=== PATIENT | female | born 1940 | race African-American/Black ===

== ENCOUNTER 2018-04-27 12:44 | Emergency (ER) | payer OTHER ==
[~2018-04-27] VITALS: Ht 160 cm; Wt 63.5 kg
[2018-04-27 13:14] VITALS: BP 96/47
[2018-04-27 14:11] LABS: HEMOGLOBIN 11.7 G/DL (12.0-16.0); MEAN CORPUSCULAR VOLUME 75 FL (80-99); PLATELET COUNT 416 K/UL (150-450); RED BLOOD COUNT 5.05 M/UL (4.20-5.40); WHITE BLOOD COUNT 18.4 K/UL (4.8-10.8)
[2018-04-27 14:20] LABS: INR 1.1 (0.9-1.1)
[2018-04-27 14:24] LABS: ANION GAP 13 mmol/L (5-15); BLOOD UREA NITROGEN 14 mg/dL (7-18); CALCIUM 7.9 MG/DL (8.5-10.1); CARBON DIOXIDE 25 MMOL/L (21-32); CHLORIDE 96 MMOL/L (98-107); CREATININE 7.5 MG/DL (0.55-1.30); POTASSIUM 2.9 MMOL/L (3.5-5.1); SODIUM 134 MMOL/L (136-145)
[2018-04-27] MEDS ORDERED: cefTRIAXone 1 GM in NS 55 ML IVPB ONE (14:30)
[2018-04-27 14:37] LABS: ALANINE AMINOTRANSFERASE 14 U/L (12-78); ALBUMIN 1.5 G/DL (3.4-5.0); ALBUMIN/GLOBULIN RATIO 0.3 (1.0-2.7); ALKALINE PHOSPHATASE 132 U/L (46-116); ASPARTATE AMINO TRANSFERASE 44 U/L (15-37); BILIRUBIN,TOTAL 0.4 MG/DL (0.2-1.0); CKMB 1.3 NG/ML (0.0-3.6); CREATINE KINASE 116 U/L (26-308); PHOSPHORUS 1.8 MG/DL (2.5-4.9)
--- NOTE | 2018-04-27 14:49 | Emergency Room Report ---
History of Present Illness General Chief Complaint: Generalized Weakness Source: Family Member (Makc Neal MD) Present Illness HPI Patient is a 78-year-old female brought in by EMS after increased generalized weakness. Patient was noted to have increased epigastric discomfort. Patient prior history of end-stage renal disease and was receiving peritoneal dialysis. Patient reported to have the peritoneal dialysis earlier in the day. The patient states she has prior history of anemia and had epogen injection earlier in the day as well. The patient denied any fever. She had not been vomiting. Patient reports having constant epigastric pain. (Mack Neal MD) Allergies: Coded Allergies: No Known Allergies (Unverified , 04/27/18) Patient History Past Medical History: see triage record Reviewed Nursing Documentation: PMH: Agreed; PSxH: Agreed (Mack Neal MD) Nursing Documentation-PMH Hx Cardiac Problems: Yes - CHF Hx Gastrointestinal Problems: Yes - GERD (Mack Neal MD) Review of Systems All Other Systems: negative except mentioned in HPI (Mack Neal MD) Physical Exam Vital Signs Date Time Temp Pulse Resp B/P (MAP) Pulse Ox O2 Delivery O2 Flow Rate FiO2 04/27/18 12:37 96.8 86 14 73/49 100 Room Air 96.8 Sp02 EP Interpretation: reviewed, normal General Appearance: alert, GCS 15, thin, Chronically Ill Head: atraumatic Eyes: bilateral eye conjunctivae pale ENT: normal ENT inspection, hearing grossly normal, normal voice Neck: normal inspection, full range of motion, supple, no bony tend Respiratory: normal inspection, lungs clear, normal breath sounds, no respiratory distress, no retraction, no wheezing Cardiovascular #1: regular rate, rhythm, no edema Gastrointestinal: normal inspection, normal bowel sounds, soft, no guarding, no hernia, tenderness - epigastric Genitourinary: no CVA tenderness Musculoskeletal: normal inspection, back normal, normal range of motion Neurologic: normal inspection, alert, oriented x3, responsive, speech normal Psychiatric: normal inspection, judgement/insight normal, mood/affect normal Skin: no rash, pallor (Mack Neal MD) Medical Decision Making Diagnostic Impression: Primary Impression: SBP (spontaneous bacterial peritonitis) Additional Impression: Renal failure ER Course Patient presented for generalized weakness. Differential diagnosis included was not limited to anemia, urinary tract infection, electrolyte abnormality, hypothyroidism, myocardial infarction, myasthenia gravis, dehydration, among others. Because of complexity of patient's case laboratory testing and imaging studies were ordered. EKG interpreted by me showed normal sinus rhythm without any evidence of acute ST or T wave changes. The patient was started on IV fluids. She was noted to have elevated white blood count on laboratory testing as well as elevated lactic acid level. The patient was endorsed to Dr. Centeno pending a CT imaging. Labs Test 04/27/18 13:55 White Blood Count 18.4 K/UL (4.8-10.8) Red Blood Count 5.05 M/UL (4.20-5.40) Hemoglobin 11.7 G/DL (12.0-16.0) Hematocrit 38.0 % (37.0-47.0) Mean Corpuscular Volume 75 FL (80-99) Mean Corpuscular Hemoglobin 23.1 PG (27.0-31.0) Mean Corpuscular Hemoglobin Concent 30.7 G/DL (32.0-36.0) Red Cell Distribution Width 18.0 % (11.6-14.8) Platelet Count 416 K/UL (150-450) Mean Platelet Volume 9.5 FL (6.5-10.1) Neutrophils (%) (Auto) % (45.0-75.0) Lymphocytes (%) (Auto) % (20.0-45.0) Monocytes (%) (Auto) % (1.0-10.0) Eosinophils (%) (Auto) % (0.0-3.0) Basophils (%) (Auto) % (0.0-2.0) Prothrombin Time 11.3 SEC (9.30-11.50) Prothromb Time International Ratio 1.1 (0.9-1.1) Activated Partial Thromboplast Time 28 SEC (23-33) Sodium Level 134 MMOL/L (136-145) Potassium Level 2.9 MMOL/L (3.5-5.1) Chloride Level 96 MMOL/L (98-107) Carbon Dioxide Level 25 MMOL/L (21-32) Anion Gap 13 mmol/L (5-15) Blood Urea Nitrogen 14 mg/dL (7-18) Creatinine 7.5 MG/DL (0.55-1.30) Estimat Glomerular Filtration Rate mL/min (>60) Glucose Level 165 MG/DL (74-106) Lactic Acid Level 5.40 mmol/L (0.4-2.0) Calcium Level 7.9 MG/DL (8.5-10.1) Phosphorus Level 1.8 MG/DL (2.5-4.9) Magnesium Level 1.2 MG/DL (1.8-2.4) Total Bilirubin 0.4 MG/DL (0.2-1.0) Aspartate Amino Transf (AST/SGOT) 44 U/L (15-37) Alanine Aminotransferase (ALT/SGPT) 14 U/L (12-78) Alkaline Phosphatase 132 U/L (46-116) Total Creatine Kinase 116 U/L (26-308) Creatine Kinase MB 1.3 NG/ML (0.0-3.6) Creatine Kinase MB Relative Index 1.1 Troponin I 0.038 ng/mL (0.000-0.056) Total Protein 6.1 G/DL (6.4-8.2) Albumin 1.5 G/DL (3.4-5.0) Globulin 4.6 g/dL Albumin/Globulin Ratio 0.3 (1.0-2.7) (Mack Neal MD) ER Course Please refer to the initial note for the history exam and presentation At this time patient had CT obtained I spoke to radiology There was some question regarding possible free intra-abdominal air However patient is also on peritoneal dialysis And there was some question regarding that being the source With that finding general surgery was consulted Patient's abdomen remains soft Please refer to his report for the full specifics However as far as emergent intra-abdominal pathology patient was cleared through surgery Patient does have elevated white blood cell count and elevated lactic acid therefore is severe sepsis protocols continued to progress with IV hydration and antibiotics Patient is stable for transfer Currently at time of dictation [id number] patient remains with appropriate blood pressure and heart rate And stable for close follow-up with transfer for inpatient care Labs Test 04/27/18 13:55 04/27/18 15:20 White Blood Count 18.4 K/UL (4.8-10.8) Red Blood Count 5.05 M/UL (4.20-5.40) Hemoglobin 11.7 G/DL (12.0-16.0) Hematocrit 38.0 % (37.0-47.0) Mean Corpuscular Volume 75 FL (80-99) Mean Corpuscular Hemoglobin 23.1 PG (27.0-31.0) Mean Corpuscular Hemoglobin Concent 30.7 G/DL (32.0-36.0) Red Cell Distribution Width 18.0 % (11.6-14.8) Platelet Count 416 K/UL (150-450) Mean Platelet Volume 9.5 FL (6.5-10.1) Neutrophils (%) (Auto) % (45.0-75.0) Lymphocytes (%) (Auto) % (20.0-45.0) Monocytes (%) (Auto) % (1.0-10.0) Eosinophils (%) (Auto) % (0.0-3.0) Basophils (%) (Auto) % (0.0-2.0) Differential Total Cells Counted 100 Neutrophils % (Manual) 91 % (45-75) Lymphocytes % (Manual) 5 % (20-45) Monocytes % (Manual) 4 % (1-10) Eosinophils % (Manual) 0 % (0-3) Basophils % (Manual) 0 % (0-2) Band Neutrophils 0 % (0-8) Platelet Estimate Increased Platelet Morphology Normal Hypochromasia 3+ Anisocytosis 2+ Prothrombin Time 11.3 SEC (9.30-11.50) Prothromb Time International Ratio 1.1 (0.9-1.1) Activated Partial Thromboplast Time 28 SEC (23-33) Sodium Level 134 MMOL/L (136-145) Potassium Level 2.9 MMOL/L (3.5-5.1) Chloride Level 96 MMOL/L (98-107) Carbon Dioxide Level 25 MMOL/L (21-32) Anion Gap 13 mmol/L (5-15) Blood Urea Nitrogen 14 mg/dL (7-18) Creatinine 7.5 MG/DL (0.55-1.30) Estimat Glomerular Filtration Rate mL/min (>60) Glucose Level 165 MG/DL (74-106) Lactic Acid Level 5.40 mmol/L (0.4-2.0) 4.90 mmol/L (0.66-2.22) Calcium Level 7.9 MG/DL (8.5-10.1) Phosphorus Level 1.8 MG/DL (2.5-4.9) Magnesium Level 1.2 MG/DL (1.8-2.4) Total Bilirubin 0.4 MG/DL (0.2-1.0) Aspartate Amino Transf (AST/SGOT) 44 U/L (15-37) Alanine Aminotransferase (ALT/SGPT) 14 U/L (12-78) Alkaline Phosphatase 132 U/L (46-116) Total Creatine Kinase 116 U/L (26-308) Creatine Kinase MB 1.3 NG/ML (0.0-3.6) Creatine Kinase MB Relative Index 1.1 Troponin I 0.038 ng/mL (0.000-0.056) Total Protein 6.1 G/DL (6.4-8.2) Albumin 1.5 G/DL (3.4-5.0) Globulin 4.6 g/dL Albumin/Globulin Ratio 0.3 (1.0-2.7) (Neeraj Centeno DO) EKG Diagnostic Results Rate: normal Rhythm: NSR ST Segments: no acute changes (Mack Neal MD) Rhythm Strip Diag. Results EP Interpretation: yes Rhythm: NSR, no PVC's, no ectopy (Mack Neal MD) Chest X-Ray Diagnostic Results Chest X-Ray Diagnostic Results : Chest X-Ray Ordered: Yes # of Views/Limited/Complete: 1 View Indication: Chest Pain EP Interpretation: Yes Interpretation: no consolidation, no effusion, no pneumothorax, other - Question of air under the right hemidiaphragm Impression: Other - Question of free air under right diaphragm (Neeraj Centeno DO) CT/MRI/US Diagnostic Results CT/MRI/US Diagnostic Results : Impression CT abdomen pelvisFindings: Lack of enteric contrast limits assessment of the GI tract. There is a peritoneal dialysis catheter within the peritoneal space in the left anterior pelvis.. There is free intraperitoneal fluid. There is also free intraperitoneal air. The majority is in the anterior peritoneal space anterior to the left lobe of the liver and the stomach. A few gas bubbles are seen within the falciform ligament and within the lesser sac and within the anterior omentum. There is some infiltration of the pericolonic fat surrounding the proximal descending colon and the splenic flexure, and some of the omental gas bubbles are seen in the vicinity of this is well. The appendix is normal. No evidence of diverticulosis or diverticulitis. No small bowel distention. There is a small hiatal hernia. There is mild thickening of the distal esophageal wall. A small amount of fluid is seen herniated into the umbilicus. Lack of IV contrast limits assessment of solid organs. The liver demonstrates surface nodularity. There is a 3.8 cm cyst in segment 4A. Some calcifications are seen within the liver. The gallbladder, bile ducts, pancreas, spleen are unremarkable. There is an accessory splenule. The adrenals are unremarkable. The kidneys are atrophic. There is a parapelvic cyst on the right. Calcifications in the renal sinuses bilaterally are probably arterial. No hydronephrosis. No retroperitoneal mass or adenopathy. No pelvic mass or adenopathy. The uterus is not identified, presumed surgically absent. The urinary bladder is equivocally mildly thick-walled. There is edema of the presacral fat. There is trace pleural fluid on the left. There are posterior dependent pulmonary atelectatic changes. The bones are unremarkable except for mild degenerative proliferative changes of the thoracic and lumbar spine. Impression: Peritoneal dialysis catheter in place Pneumoperitoneum. Statistically, most likely due to the presence of of the peritoneal dialysis catheter. However, the presence of gas bubbles within the fat of the lesser sac, falciform ligament, and greater omentum-not definitely within the peritoneal space-does raise concern for the possibility of perforated hollow viscus, possibly a perforated gastric ulcer given the proximity of some of gas bubbles to the stomach. There is also infiltration of the fat surrounding the proximal descending colon which could indicate colonic inflammation and some of the omental gas bubbles are in the vicinity of this. No definite diverticula to suggest diverticulitis, however. Free intraperitoneal fluid, presumably related to the peritoneal dialysis catheter, although there is also evidence of hepatic cirrhosis Surface nodularity of the liver, suspicious for hepatic cirrhosis, as mentioned above Atrophic bilateral kidneys Equivocally wall thickening of the urinary bladder, most likely artifact of under distention is nondistended, Small hiatal hernia. Mild wall thickening of the distal esophagus, could indicate esophagitis Nonspecific edema of the presacral fat Trace left pleural effusion Other findings as noted, including mild degenerative spondylosis, small right renal parapelvic cyst, herniated fluid in the umbilicus, accessory splenule (Neeraj Centeno DO) Last Vital Signs Date Time Temp Pulse Resp B/P (MAP) Pulse Ox O2 Delivery O2 Flow Rate FiO2 04/27/18 13:14 86 22 96/47 100 Room Air 04/27/18 12:37 96.8 96.8 Status: unchanged (Mack Neal MD) Status: improved (Neeraj Centeno DO) Disposition: XFER SHT-TRM HOSP Condition: Serious Referrals: NON PHYSICIAN (PCP) Mack Neal MD Apr 27, 2018 14:49 Neeraj Centeno DO Apr 27, 2018 17:49
[2018-04-27] MEDS ORDERED: ASPIRIN81 MG ORAL (14:54)
[2018-04-27] MEDS ORDERED: COZAAR50 MG ORAL (14:54)
[2018-04-27] MEDS ORDERED: LOPERAMIDE2 M1 PO (14:54)
[2018-04-27] MEDS ORDERED: RENVELA0.8 GM ORAL (14:54)
[2018-04-27] MEDS ORDERED: ISOSORBIDE MONO60 M1 PO (14:54)
[2018-04-27] MEDS ORDERED: ZOFRAN4 M3 ORAL (14:54)
[2018-04-27] MEDS ORDERED: NITROSTAT0.4 M1 SL (14:54)
[2018-04-27] MEDS ORDERED: LYRICA25 MG ORAL (14:54)
[2018-04-27] MEDS ORDERED: MIRTAZAPINE15 MG ORAL (14:54)
[2018-04-27] MEDS ORDERED: AMLODIPINE BESYL5 MG ORAL (14:54)
[2018-04-27] MEDS ORDERED: REGLAN5 MG ORAL (14:54)
[2018-04-27] MEDS ORDERED: SENNA8.6 M2 PO (14:54)
[2018-04-27] MEDS ORDERED: LOPERAMIDE2 MG PO (14:54)
[2018-04-27] MEDS ORDERED: CRESTOR20 MG ORAL (14:54)
[2018-04-27] MEDS ORDERED: NORCO 5-325 TA1 EACH ORAL (14:54)
[2018-04-27] MEDS ORDERED: NEPHROVITE1 TAB ORAL (14:54)
[2018-04-27] MEDS ORDERED: GABAPENTIN300 MG ORAL (14:54)
[2018-04-27] MEDS ORDERED: ROCATROL0.25 MCG PO (14:54)
[2018-04-27] MEDS ORDERED: PLAVIX75 MG ORAL (14:54)
[2018-04-27] MEDS ORDERED: CARVEDILOL25 MG ORAL (14:54)
[2018-04-27] MEDS ORDERED: DOCUSATE SODIU100 MG ORAL (14:54)
[2018-04-27] MEDS ORDERED: ZOCOR10 MG ORAL (14:54)
[2018-04-27] MEDS ORDERED: PROTONIX40 MG ORAL (14:54)
[2018-04-27] MEDS ORDERED: VITAMIN D2400 UNI1 PO (14:54)
--- NOTE | 2018-04-27 15:09 | Diagnostic Imaging Report ---
Indication: Cough Technique: One view of the chest Comparison: none Findings: There is free intraperitoneal air under the right hemidiaphragm. Inspiration is suboptimal. There is some atelectasis in the left infrahilar region. Lungs and pleural spaces are otherwise clear. Impression: Evidence of free intraperitoneal air. Per discussion with referring physician, patient has history of peritoneal dialysis so most likely related to such. However, the possibility of perforated hollow viscus should also be considered. Correlate with clinical findings Minimal left infrahilar atelectasis Findings discussed by phone with Dr. Centeno at the time of interpretation
[2018-04-27] MEDS ORDERED: Vancomycin 1 GM in NS 275 ML IVPB ONE (15:45)
[2018-04-27 15:46] VITALS: BP 139/39
--- NOTE | 2018-04-27 16:34 | Diagnostic Imaging Report ---
Indication: Abdominal pain and epigastric discomfort Technique: Spiral acquisitions obtained through the abdomen and pelvis. No oral contrast utilized, per emergency room physician request No IV contrast utilized, per referring physician request.. Multiplanar reconstructions were generated. Total dose length product 836.65 mGycm. CTDIvol(s) 15.7 mGy. Dose reduction achieved using automated exposure control Comparison: None Findings: Lack of enteric contrast limits assessment of the GI tract. There is a peritoneal dialysis catheter within the peritoneal space in the left anterior pelvis.. There is free intraperitoneal fluid. There is also free intraperitoneal air. The majority is in the anterior peritoneal space anterior to the left lobe of the liver and the stomach. A few gas bubbles are seen within the falciform ligament and within the lesser sac and within the anterior omentum. There is some infiltration of the pericolonic fat surrounding the proximal descending colon and the splenic flexure, and some of the omental gas bubbles are seen in the vicinity of this is well. The appendix is normal. No evidence of diverticulosis or diverticulitis. No small bowel distention. There is a small hiatal hernia. There is mild thickening of the distal esophageal wall. A small amount of fluid is seen herniated into the umbilicus. Lack of IV contrast limits assessment of solid organs. The liver demonstrates surface nodularity. There is a 3.8 cm cyst in segment 4A. Some calcifications are seen within the liver. The gallbladder, bile ducts, pancreas, spleen are unremarkable. There is an accessory splenule. The adrenals are unremarkable. The kidneys are atrophic. There is a parapelvic cyst on the right. Calcifications in the renal sinuses bilaterally are probably arterial. No hydronephrosis. No retroperitoneal mass or adenopathy. No pelvic mass or adenopathy. The uterus is not identified, presumed surgically absent. The urinary bladder is equivocally mildly thick-walled. There is edema of the presacral fat. There is trace pleural fluid on the left. There are posterior dependent pulmonary atelectatic changes. The bones are unremarkable except for mild degenerative proliferative changes of the thoracic and lumbar spine. Impression: Peritoneal dialysis catheter in place Pneumoperitoneum. Statistically, most likely due to the presence of of the peritoneal dialysis catheter. However, the presence of gas bubbles within the fat of the lesser sac, falciform ligament, and greater omentum-not definitely within the peritoneal space-does raise concern for the possibility of perforated hollow viscus, possibly a perforated gastric ulcer given the proximity of some of gas bubbles to the stomach. There is also infiltration of the fat surrounding the proximal descending colon which could indicate colonic inflammation and some of the omental gas bubbles are in the vicinity of this. No definite diverticula to suggest diverticulitis, however. Free intraperitoneal fluid, presumably related to the peritoneal dialysis catheter, although there is also evidence of hepatic cirrhosis Surface nodularity of the liver, suspicious for hepatic cirrhosis, as mentioned above Atrophic bilateral kidneys Equivocally wall thickening of the urinary bladder, most likely artifact of under distention is nondistended, Small hiatal hernia. Mild wall thickening of the distal esophagus, could indicate esophagitis Nonspecific edema of the presacral fat Trace left pleural effusion Other findings as noted, including mild degenerative spondylosis, small right renal parapelvic cyst, herniated fluid in the umbilicus, accessory splenule Findings discussed by phone with Dr. Centeno the time of interpretation The CT scanner at [facility] is accredited by the [employer] and the scans are performed using protocols designed to limit radiation exposure to as low as reasonably achievable to attain images of sufficient resolution adequate for diagnostic evaluation.
--- NOTE | 2018-04-27 16:43 | Consultation ---
History of Present Illness General Date patient seen: Apr 27, 2018 Chief Complaint: Generalized Weakness Reason for Consultation: abdominal pain Present Illness HPI 78 year old very pleasant female with multiple medical comorbidities including ESRD on Peritoneal dialysis daily was noted to have pneumoperitoneum. Patient states she was at her PCP office when noted to have low BP and weakness. Was told to come to ED for evaluation to ensure safety. In ED c/o abdominal discomfort. CT A/P performed and demonstrated free air. Surgery called to evaluate. Patient seen, chart reviewed, patient examined. Patient states that she has been with PD for 5+ years now. Her daughter helps her daily with PD. last PD was this AM. She complaints of generalized abdominal discomfort and states she has it "every time she eats.' has not been worse recently and has been baseline for some time now. she has history of colitis and had upper and lower endoscopy 3 weeks ago without complication. otherwise well. currently states she feels well and no new complaints. Allergies: Coded Allergies: No Known Allergies (Unverified , 04/27/18) Medication History Scheduled Amlodipine Besylate* (Amlodipine Besylate*), 5 MG ORAL DAILY, (Reported) Aspirin* (Aspirin*), 81 MG ORAL DAILY, (Reported) Carvedilol* (Carvedilol*), 25 MG ORAL EVERY 12 HOURS, (Reported) Clopidogrel Bisulfate* (Plavix*), 75 MG ORAL DAILY, (Reported) Docusate Sodium* (Docusate Sodium*), 100 MG ORAL TWICE A DAY, (Reported) Ergocalciferol (Vitamin D2) (Vitamin D2), 1.25 MG PO ONCE A WK, (Reported) Gabapentin* (Gabapentin*), 300 MG ORAL BEDTIME, (Reported) Isosorbide Mononitrate (Isosorbide Mononitrate Er), 60 MG PO DAILY, (Reported) Losartan Potassium* (Cozaar*), 50 MG ORAL TWICE A DAY, (Reported) Metoclopramide Hcl* (Reglan*), 5 MG ORAL EVERY 6 HOURS, (Reported) Mirtazapine* (Remeron*), 15 MG ORAL BEDTIME, (Reported) Pantoprazole* (Protonix*), 40 MG ORAL DAILY, (Reported) Pregabalin (Lyrica), 25 MG ORAL DAILY, (Reported) Rosuvastatin Calcium* (Crestor*), 20 MG ORAL DAILY, (Reported) Sennosides (Senna), 2 CAP PO BEDTIME, (Reported) Sevelamer Carbonate* (Renvela*), 800 MG ORAL DAILY, (Reported) Simvastatin (Zocor), 10 MG ORAL BEDTIME, (Reported) Vitamin B Cmplx/Vit C/Folic AC (Nephro-Pérez Tablet), 1 TAB ORAL DAILY, (Reported ) Scheduled PRN Hydrocodone Bit/Acetaminophen 5-325* (Allen 5-325*), 1 TAB ORAL Q4H PRN for For Pain, (Reported) Loperamide Hcl (Loperamide), 2 MG PO for LOOSE STOOL, (Reported) Nitroglycerin (Nitrostat), 0.4 MG SL Q5M X3 DOSES PRN for CHEST PAIN, (Reported) Ondansetron* (Zofran*), 4 MG ORAL BID PRN for Nausea & Vomiting, (Reported) Miscellaneous Medications Calcitriol (Calcitriol), 0.5 MCG PO, (Reported) Loperamide Hcl (Loperamide), 2 MG PO, (Reported) Patient History History Provided By: Patient, Medical Record, PMD Healthcare decision maker Resuscitation status Advanced Directive on File Past Medical/Surgical History Past Medical/Surgical History: (1) ESRD (end stage renal disease) (2) Peritoneal dialysis catheter in place (3) Pneumoperitoneum Review of Systems Constitutional: Reports: weakness; Denies: no symptoms, see HPI, chills, sweats , fever, malaise, other Eye: Denies: no symptoms, see HPI, eye pain, blurred vision, tearing, double vision, nose pain, nose congestion, acuity changes, discharge, other ENT: Denies: no symptoms, see HPI, ear pain, ear discharge, nose pain, nose congestion, throat pain, throat swelling, mouth pain, hearing loss, nasal discharge, other Respiratory: Denies: no symptoms, see HPI, cough, orthopnea, shortness of breath, stridor, wheezing, JERNIGAN, sputum, other Cardiovascular: Denies: no symptoms, see HPI, chest pain, edema, palpitations, syncope, PND, other Gastrointestinal: Reports: abdominal pain; Denies: no symptoms, see HPI, constipation, diarrhea, nausea, vomiting, melena, hematemesis, other Genitourinary: Denies: no symptoms, see HPI, discharge, dysuria, frequency, hematuria, pain, retention, incontinence, urgency, vag bleed/dc, other Musculoskeletal: Denies: no symptoms, see HPI, back pain, gout, joint pain, joint swelling, muscle pain, muscle stiffness, other Skin: Denies: no symptoms, see HPI, rash, change in color, change in hair/nails , dryness, lesions, other Psychiatric: Denies: no symptoms, see HPI, prior hx, anxiety, depressed feelings, emotional problems, SI, HI, hallucinations, other Neurological: Denies: no symptoms, see HPI, headache, numbness, paresthesia, seizure, tingling, tremors, focal weakness, syncope, dizziness, other Endocrine: Denies: no symptoms, see HPI, excessive sweating, flushing, intolerance to temperature, increased thirst, increased urine, unexplained weight loss, other Hematologic/Lymphatic: Denies: no symptoms, see HPI, anemia, blood clots, easy bleeding, easy bruising, swollen glands, diathesis, other Physical Exam General Appearance: WD/WN, no apparent distress, alert HEENT: mucous membranes moist, PERRL Neck: normal inspection Respiratory/Chest: normal breath sounds, no respiratory distress, no accessory muscle use Cardiovascular/Chest: normal rate, regular rhythm Abdomen: normal bowel sounds, non tender, soft, no organomegaly, no mass, other - PD cath noted. Extremities: normal range of motion, normal inspection Skin Exam: normal pigmentation Neurologic: alert, oriented x 3, responsive Last 24 Hour Vital Signs Date Time Temp Pulse Resp B/P (MAP) Pulse Ox O2 Delivery O2 Flow Rate FiO2 04/27/18 15:46 97.9 90 19 139/39 98 Room Air 97.9 04/27/18 13:14 86 22 96/47 100 Room Air 04/27/18 12:37 96.8 86 14 73/49 100 Room Air 96.8 Laboratory Tests Test 04/27/18 13:55 04/27/18 15:20 White Blood Count 18.4 K/UL (4.8-10.8) H Red Blood Count 5.05 M/UL (4.20-5.40) Hemoglobin 11.7 G/DL (12.0-16.0) L Hematocrit 38.0 % (37.0-47.0) Mean Corpuscular Volume 75 FL (80-99) L Mean Corpuscular Hemoglobin 23.1 PG (27.0-31.0) L Mean Corpuscular Hemoglobin Concent 30.7 G/DL (32.0-36.0) L Red Cell Distribution Width 18.0 % (11.6-14.8) H Platelet Count 416 K/UL (150-450) Mean Platelet Volume 9.5 FL (6.5-10.1) Neutrophils (%) (Auto) % (45.0-75.0) Lymphocytes (%) (Auto) % (20.0-45.0) Monocytes (%) (Auto) % (1.0-10.0) Eosinophils (%) (Auto) % (0.0-3.0) Basophils (%) (Auto) % (0.0-2.0) Differential Total Cells Counted 100 Neutrophils % (Manual) 91 % (45-75) H Lymphocytes % (Manual) 5 % (20-45) L Monocytes % (Manual) 4 % (1-10) Eosinophils % (Manual) 0 % (0-3) Basophils % (Manual) 0 % (0-2) Band Neutrophils 0 % (0-8) Platelet Estimate Increased H Platelet Morphology Normal Hypochromasia 3+ Anisocytosis 2+ Prothrombin Time 11.3 SEC (9.30-11.50) Prothromb Time International Ratio 1.1 (0.9-1.1) Activated Partial Thromboplast Time 28 SEC (23-33) Sodium Level 134 MMOL/L (136-145) L Potassium Level 2.9 MMOL/L (3.5-5.1) L Chloride Level 96 MMOL/L (98-107) L Carbon Dioxide Level 25 MMOL/L (21-32) Anion Gap 13 mmol/L (5-15) Blood Urea Nitrogen 14 mg/dL (7-18) Creatinine 7.5 MG/DL (0.55-1.30) H Estimat Glomerular Filtration Rate mL/min (>60) Glucose Level 165 MG/DL (74-106) H Lactic Acid Level 5.40 mmol/L (0.4-2.0) H 4.90 mmol/L (0.66-2.22) H Calcium Level 7.9 MG/DL (8.5-10.1) L Phosphorus Level 1.8 MG/DL (2.5-4.9) L Magnesium Level 1.2 MG/DL (1.8-2.4) L Total Bilirubin 0.4 MG/DL (0.2-1.0) Aspartate Amino Transf (AST/SGOT) 44 U/L (15-37) H Alanine Aminotransferase (ALT/SGPT) 14 U/L (12-78) Alkaline Phosphatase 132 U/L (46-116) H Total Creatine Kinase 116 U/L (26-308) Creatine Kinase MB 1.3 NG/ML (0.0-3.6) Creatine Kinase MB Relative Index 1.1 Troponin I 0.038 ng/mL (0.000-0.056) Total Protein 6.1 G/DL (6.4-8.2) L Albumin 1.5 G/DL (3.4-5.0) L Globulin 4.6 g/dL Albumin/Globulin Ratio 0.3 (1.0-2.7) L Height (Feet): 5 Height (Inches): 3.00 Weight (Pounds): 140 Medications Current Medications Medications (Trade) Dose Ordered Sig/Landon Route PRN Reason Start Time Stop Time Status Last Admin Dose Admin Vancomycin HCl 1 gm/Sodium Chloride 275 ml @ 183.708 mls/hr ONCE ONCE IVPB 04/27/18 15:45 04/27/18 17:14 04/27/18 15:51 Assessment/Plan Problem List: (1) Pneumoperitoneum Assessment & Plan: 78F with pneumoperitoneum. afebrile, HD stable, leukocytosis. labs as above. exam benign. likely findings from PD cath usage. no signs or symptoms of intraabdominal pathology does have leukocytosis of unknown origin which needs further work up. -IV Abx -culture PD fluid with next PD -continue daily PD as routine -should be admitted for monitoring and work up to ensure no intraabdominal pathology -stable for transfer. [place] [facility] [place]. thank you for this consultation. ICD Codes: K66.8 - Other specified disorders of peritoneum SNOMED: [id number] Status: stable JuvenalshaneAdolfo Apr 27, 2018 16:43
[2018-04-27 18:07] VITALS: BP 127/44
[2018-04-27 18:58] VITALS: BP 101/83
[2018-04-27 19:43] VITALS: BP 102/51
[2018-04-27 21:10] VITALS: BP 106/41
[2018-04-28 00:12] VITALS: BP 106/41
== END 2018-04-27 21:10 | disposition short-term general hospital (02) ==
LOC: EDBD 12:44 → EMR 13:43
DX: K65.2 Spontaneous bacterial peritonitis (principal); B96.89 Other specified bacterial agents as the cause of diseases classified elsewhere; N19 Unspecified kidney failure; I50.9 Heart failure, unspecified; K21.9 Gastro-esophageal reflux disease without esophagitis
CPT/HCPCS: 36415; 71045; 74176; 80053; 82550; 82553; 83605; 83735; 84100; 84484; 85007; 85025; 85610; 85730; 87040; 93005; 96360; 96361; 99285